=== PATIENT | female | born 1975 | race Asian ===

== ENCOUNTER 2018-10-08 04:59 | Day surgery (SDC) | payer BC ==
[2018-10-02 11:21] VITALS: BMI 23.4
[2018-10-08] MEDS ORDERED: ROCURONIUM BROMIDE 50 MG/5 ML VIAL ONE ×2 (14:10)
[2018-10-08] MEDS ORDERED: PROPOFOL 20 ML ONE ×2 (14:10)
[2018-10-08] MEDS ORDERED: MIDAZOLAM HCL 2 MG/2 ML SINGLE DOSE VIAL ONE (14:10)
[2018-10-08] MEDS ORDERED: LIDOCAINE HCL/PF 2% SDV 5ML VIAL ONE (14:10)
[2018-10-08] MEDS ORDERED: IBUPROFEN 800 MG/8 ML IJ IVPB PRN (14:19)
[2018-10-08] MEDS ORDERED: ACETAMINOPHEN 325 MG TABLET (FP) PO PRN (14:19)
[2018-10-08] MEDS ORDERED: IBUPROFEN 600 MG TABLET (FP) PO PRN (14:19)
--- NOTE | 2018-10-08 14:19 | HP ---
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 Cardiovascular: No: HTN Pulmonary: No: Asthma ...LMP: 09/18/18 ...: No Heme/Onc: No: Anemia - Past Surgical History Additional Past Surgical History: L breast excision/ biospy --> [facility]igh - Smoking History Smoking history: Never smoked Have you smoked in the past 12 months: No - Alcohol/Substance Use Hx Alcohol Use: No History of Substance Use: reports: None - Social History Usual Living Arrangement: Yes: With Spouse History of Recent Travel: No Home Medications - Allergies Allergies/Adverse Reactions: Allergies Allergy/AdvReac Type Severity Reaction Status Date / Time No Known Allergies Allergy Verified 10/08/18 13:26 - Home Medications Home Medications: Ambulatory Orders NK [No Known Home Medication] 10/02/18 Family Disease History - Family Disease History Family History: Denies Review of Systems - Review of Systems Constitutional: reports: No Symptoms Neck: reports: No Symptoms Cardiovascular: reports: No Symptoms Respiratory: reports: No Symptoms Gastrointestinal: reports: No Symptoms Musculoskeletal: reports: No Symptoms Integumentary: reports: No Symptoms Neurological: reports: No Symptoms Endocrine: reports: No Symptoms Psychiatric: reports: No Symptoms Physical Examination Vital Signs: Vital Signs Temperature 98.4 F 10/08/18 13:15 Pulse Rate 85 10/08/18 13:15 Respiratory Rate 18 10/08/18 13:15 Blood Pressure 143/77 10/08/18 13:15 O2 Sat by Pulse Oximetry (%) 100 10/08/18 13:20 Constitutional: Yes: Well Nourished, No Distress, Calm Neck: Yes: Supple Cardiovascular: Yes: Regular Rate and Rhythm Respiratory: Yes: Regular, CTA Bilaterally Gastrointestinal: Yes: Normal Bowel Sounds, Soft Edema: No Peripheral Pulses WNL: No Neurological: Yes: Alert, Oriented ...Motor Strength: WNL Psychiatric: Yes: WNL Assessment/Plan 42 yo bilateral ovarian cysts for laparoscopic bilateral ovarian cystectomy, possible oophorectomy, possible unilateral oophorectomy / cystectomy and all indicated procedure 1. Consents reviewed and signed 2. Preop labs reviewed 3. Ancef 4. Will proceed to OR
[2018-10-08] MEDS ORDERED: ceFAZolin SODIUM 1 GM VIAL ONE (14:34)
[2018-10-08] MEDS ORDERED: ceFAZolin SODIUM 1 GM VIAL IVPB ONE (14:39)
[2018-10-08] MEDS ORDERED: DEXAMETHASONE SOD PHOSPHATE 4 MG/1 ML VIAL ONE (14:49)
[2018-10-08] MEDS ORDERED: LACTATED RINGERS SOLUTION 1,000 ML IV SCH (15:30)
[2018-10-08] MEDS ORDERED: PROMETHAZINE HCL 25 MG/1 ML VIAL IVPUSH PRN (15:30)
[2018-10-08] MEDS ORDERED: oxyCODONE HCL 5 MG TABLET PO PRN (15:30)
[2018-10-08] MEDS ORDERED: ONDANSETRON 4 MG/2 ML VIAL IVPUSH PRN (15:30)
[2018-10-08] MEDS ORDERED: NEOSTIGMINE METHYLSULFATE 0.5 MG/ML - 10 ML MDV ONE (15:34)
[2018-10-08] MEDS ORDERED: GLYCOPYRROLATE 0.2 MG/1 ML VIAL ONE (15:40)
[2018-10-08] MEDS ORDERED: ESMOLOL HCL 100,000 MCG/10 ML VIAL ONE (15:49)
--- NOTE | 2018-10-08 16:08 | OP ---
Operative Note - Note: Operative Date: 10/08/18 Pre-Operative Diagnosis: bilateral ovarian cysts,pelvic pain Operation: laparoscopic left ovarian cystectomy Findings: severe dense adhesions posterior uterus, obliterating cul de sac, distorting anatomy, left endometrioma, signs of endometriosis Surgeon: Fang Marsh Screen Printing Supervisor: Devang Iglesias Anesthesiologist/HIGH SCHOOL TUTOR: Madison Lopez Anesthesia: General Specimens Removed: left ovarian cyst wall Estimated Blood Loss (mls): 2 Blood Volume Replaced (mls): 200 Fluid Volume Replaced (mls): 650 Operative Report Dictated: Yes
[2018-10-08] MEDS ORDERED: IBUPROFEN 800 MG/8 ML IJ IVPB ONE (16:10)
--- NOTE | 2018-10-08 17:42 | OP ---
DATE OF OPERATION: 10/08/2018 ATTENDING PHYSICIAN: Fang Marsh MD PREOPERATIVE DIAGNOSIS: Bilateral ovarian cysts, pelvic pain. SURGERY: Laparoscopic left ovarian cystectomy. FINDINGS: Severe dense adhesions of the posterior uterus, obliterating the cul-de-sac, distorting anatomy, with obliteration of normal anatomy, left endometrioma noted from the left ovary, normal-appearing right ovary, signs of endometriosis. SURGEON: Fang Marsh MD LOAD CHECKER: Devang Iglesias MD ANESTHESIOLOGIST: Madison Lopez MD ANESTHESIA: General. SPECIMENS REMOVED: Left ovarian cyst wall. ESTIMATED BLOOD LOSS: 2 mL. URINE OUTPUT: 200. FLUID VOLUME GIVEN: 650. INDICATION: The patient is a 42-year-old with history of acute pelvic pain, was found to have a 2-cm ovarian cyst. She had repeat ultrasound in our office and was found to have bilateral ovarian cysts. Given the history of pain, she opted for surgical management. She was counseled regarding risks, benefits, alternatives and complications to procedure including infection, bleeding, damage to surrounding organs such as the bowel and bladder, and their associated repair, risks of laparotomy, risks of oophorectomy. She expressed understanding. She was brought to the operating room. When anesthesia was found to be adequate, patient was prepped and draped in normal sterile fashion, placed in dorsal lithotomy position using Syd stirrups. A weighted speculum was placed in the patient's vagina. The George catheter was placed to gravity. A sponge stick was placed in the patient's vagina. Attention was brought to the abdomen. A 5-mm incision was made on the umbilicus and the 5-mm trocar was placed under direct visualization, using a Visiport to confirm intraperitoneal placement. The abdomen was insufflated to an operating pressure of approximately 16 mmHg. Attention was brought to the right lower quadrant, where a 5-mm trocar was placed under direct visualization, and the left lower quadrant, where a 5-mm trocar was placed under direct visualization. Examination of the abdominal cavity revealed the above findings with distortion of the fallopian tubes and obliteration of the posterior cul-de-sac. No perihepatic adhesions were noted. The left ovary was identified and the left ovarian cyst was noted, with inadvertent rupture during the procedure. Thick, chocolate-like fluid was noted, confirming suspicion of endometrioma. A portion of the cyst wall was removed and sent to Pathology. Copious irrigation was performed. Good hemostasis was noted. The pneumoperitoneum was released. The trocars were removed under direct visualization. All instruments were removed from the patient's abdomen. The skin was closed using 4-0 Monocryl and Dermabond. The patient was awoken from anesthesia and brought to recovery room in stable condition. Marylin [id number]
[2018-10-08 18:51] VITALS: TEMP 98
[2018-10-08 20:09] VITALS: BP 123/75; PULSE 80
--- NOTE | 2018-10-10 14:22 | PATH ---
Surgical Pathology Report Patient Name: JCARLOS VALENTIN Med. Rec. #: [id number] /Age/Gender: 1975 (Age: 42) / F Account: [id number] Location: [facility] Taken: 10/08/2018 Received: 10/09/2018 Reported: 10/10/2018 Physicians: Marylin Anguiano Specimen(s) Received PORTION OF LEFT CYST WALL OF LEFT OVARY Clinical History Acute pelvic pain Final Diagnosis LEFT OVARIAN CYST WALL, EXCISION: ENDOMETRIOTIC CYST. Electronically Signed Arash Newman M.D. Gross Description Received in formalin labeled "portion of left cyst wall of left ovary," is a 2.0 x 0.9 x 0.3 cm vail-brown portion of soft tissue, consistent with a portion of ovarian cyst. The specimen is serially sectioned and entirely submitted in one cassette. /10/09/2018 [facility]10/09/2018
--- NOTE | 2018-10-10 14:22 | PATH ---
Cytology Non-Gynecological Report Patient Name: JCARLOS VALENTIN [facility]. Rec. #: [id number] /Age/Gender: 1975 (Age: 42) / F Account: [id number] Location: [facility] Taken: 10/08/2018 Received: 10/09/2018 Reported: 10/10/2018 Physicians: Fang Marsh Specimen(s) Received PELVIC WASHINGS Clinical History None given Final Diagnosis PELVIC WASHING: SATISFACTORY FOR EVALUATION. BENIGN (NO MALIGNANT CELLS IDENTIFIED). BENIGN MESOTHELIAL CELLS AND PROTEINACEOUS MATERIAL PRESENT. Comment: See also [id number]. Electronically Signed Arash Newman M.D. Gross Description Approximately 10 cc of yellow fluid received fresh. One cytofunnel and one cellblock prepared.
== END 2018-10-08 19:35 | disposition home or self-care (01) ==
LOC: JASU-SURG 04:59
PROVIDERS: ATTEND Obstetrics & Gynecology
PROC: 0UB14ZZ Excision of Left Ovary, Percutaneous Endoscopic Approach (ICD-10-PCS; principal; 2018-10-08 14:00)
DX: N83.202 Unspecified ovarian cyst, left side (principal); N83.201 Unspecified ovarian cyst, right side; N80.1 Endometriosis of ovary; N80.0 Endometriosis of uterus
CPT/HCPCS: 36415; 84703; 88108; 88304-TC; 88305-TC; 94760